=== PATIENT | male | born 1990 | race African-American/Black ===

== ENCOUNTER 2018-09-30 10:20 | Emergency (ER) | payer MEDICAID ==
[~2018-09-30] VITALS: Ht 182.9 cm; Wt 82.0 kg
[2018-09-30] MEDS ORDERED: ARIPIPRAZOLE 5MG TABLET PO ONE (11:00)
[2018-09-30] MEDS ORDERED: ARIPIPRAZOLE 2MG TABLET PO ONE (11:45)
[2018-09-30 18:45] VITALS: BP 128/69
== END 2018-09-30 19:19 | disposition left against medical advice (07) ==
LOC: EDBD 10:20 → ER 10:20
DX: F32.9 Major depressive disorder, single episode, unspecified (principal); F20.9 Schizophrenia, unspecified; F17.210 Nicotine dependence, cigarettes, uncomplicated; Z59.0 Homelessness
CPT/HCPCS: 99284